=== PATIENT | male | born 1965 | race Caucasian/White ===

== ENCOUNTER 2022-12-29 09:11 | Inpatient (IN) | payer BC ==
[~2022-12-29] VITALS: Ht 165.1 cm; Wt 97.4 kg
[2022-12-29 10:25] LABS: BASOPHILS # (AUTO) 0.1 X10'3 (0-0.2); BASOPHILS % (AUTO) 0.6 % (0-1); EOSINOPHILS # (AUTO) 0.1 X10'3 (0-0.9); EOSINOPHILS % (AUTO) 0.7 % (0-6); HEMATOCRIT 39.3 % (42.0-52.0); HEMOGLOBIN 13.1 g/dl (14.0-17.9); LYMPHOCYTES % (AUTO) 22.9 % (21-51); MEAN CORPUSCULAR HEMOGLOBIN 27.3 PG (27.0-31.0); MEAN CORPUSCULAR HGB CONC 33.3 g/dL (33.0-36.5); MEAN PLATELET VOLUME 6.8 FL (7.4-10.4); MONOCYTES # (AUTO) 0.8 X10'3 (0-0.9); MONOCYTES % (AUTO) 9.6 % (2-12); NEUTROPHILS # (AUTO) 5.7 X10'3 (1.8-7.7); NEUTROPHILS % (AUTO) 66.2 % (42-75); PLATELET COUNT 343 X10'3 (140-440); RED BLOOD COUNT 4.79 X10'6 (4.70-6.10); RED CELL DISTRIBUTION WIDTH 14.5 % (11.5-14.5); WHITE BLOOD COUNT 8.6 X10'3 (4.5-11.0)
[2022-12-29 10:40] LABS: ALANINE AMINOTRANSFERASE 35 U/L (12-78); ALBUMIN 2.7 G/DL (3.4-5.0); ALBUMIN/GLOBULIN RATIO 0.5 (1.1-1.5); ALKALINE PHOSPHATASE 537 IU/L (46-116); ANION GAP 8 (8-16); ASPARTATE AMINO TRANSFERASE 23 U/L (10-37); BILIRUBIN,TOTAL 0.5 MG/DL (0.1-1.0); BLOOD UREA NITROGEN 13 MG/DL (7-18); BUN/CREATININE RATIO 14.1 (10.0-20.0); CALCIUM 9.3 MG/DL (8.5-10.1); CHLORIDE 96 MMOL/L (99-107); CREATININE 0.92 MG/DL (0.60-1.10); GLUCOSE 315 MG/DL (70-104); SODIUM 132 MMOL/L (135-145); TOTAL CARBON DIOXIDE 28.4 MMOL/L (24-32); TOTAL PROTEIN 7.9 G/DL (6.4-8.2); eGFR 85 ML/MIN
[2022-12-29 10:53] LABS: CLARITY,URINE CLEAR (Clear); COLOR,URINE YELLOW (Yellow); GLUCOSE, URINE 100 mg/dl (Neg); KETONES,URINE 15 mg/dl (Neg); LEUKOCYTE ESTERASE ,URINE NEGATIVE (Neg); NITRITES, URINE NEGATIVE (Neg); OCCULT BLOOD,URINE SMALL (Neg); PROTEIN,URINE 100 mg/dl (Neg); UROBILINOGEN,URINE 0.2 E.U/dL (0.2-1.0)
[2022-12-29 10:57] LABS: UA COLLECTION TYPE VOIDED
[2022-12-29 10:59] LABS: BACTERIA,URINE FEW /HPF (Neg); MUCUS STRANDS MODERATE /LPF (Neg); RBC,URINE 0-2 /HPF (0-2); SQUAMOUS EPITHELIAL CELL,UR FEW /LPF (FEW); WBC,URINE 0-4 /HPF (0-4)
[2022-12-29 11:00] LABS: FINE GRANULAR CAST 0-3 /LPF (NEGATIVE)
[2022-12-29] MEDS ORDERED: HYDROcodone/acetaminophen 10/325mg tab PO STA (11:52)
[2022-12-29] MEDS ORDERED: GADOTERATE MEGLUMINE 7.5 MMOL/15 ML VIAL IV ONE (16:47)
[2022-12-29] MEDS ORDERED: ondansetron/PF 4mg/2ml inj IV PRN (19:45)
[2022-12-29] MEDS ORDERED: magnesium hydroxide 30ml (MOM) UD suspension PO PRN (19:45)
[2022-12-29] MEDS ORDERED: magnesium 4gm in 100ml NS 100 ML IV PRN (19:45)
[2022-12-29] MEDS ORDERED: potassium Cl 40MEQ/1/2NS 520ml 520 ML IV PRN (19:45)
[2022-12-29] MEDS ORDERED: HYDROmorphone inj. 0.5 MG/0.5 ML DISP.SYRIN IV PRN (19:45)
[2022-12-29] MEDS ORDERED: potassium Cl 20 mEq SR tablet PO PRN ×2 (19:45)
[2022-12-29] MEDS ORDERED: HYDROmorphone/PF 0.2 MG/ML SYRINGE IV PRN (19:45)
[2022-12-29] MEDS ORDERED: mag hydrox/Alum hydrox/simeth 30ml oral suspension PO PRN (19:45)
[2022-12-29] MEDS ORDERED: acetaminophen 325mg tablet PO PRN (19:45)
[2022-12-29] MEDS ORDERED: ondansetron/PF 4mg/2ml inj IV ONE (19:50)
[2022-12-29] MEDS ORDERED: morphine 4 MG/ML inj SYRINge IV ONE (19:50)
[2022-12-29] MEDS: docusate sod 100mg capsule PO SCH (20:00)
[2022-12-29] MEDS ORDERED: enoxaparin 40mg/0.4ml syringe SQ SCH (20:00)
[2022-12-29] MEDS: K and/or MAG REPLACEMENT MC SCH (21:00)
--- NOTE | 2022-12-29 21:15 | NUR ---
IV STARTED IN L BRACHIAL @2100 20G, NO S/S OF INFILTRATION. FLUSHING W/O COMPLICATIONS. DRESSING CDI.
[2022-12-30 03:30] VITALS: BP 146/83
[2022-12-30 06:00] VITALS: BP 129/76
[2022-12-30 06:22] LABS: BASOPHILS # (AUTO) 0.1 X10'3 (0-0.2); BASOPHILS % (AUTO) 0.9 % (0-1); EOSINOPHILS # (AUTO) 0.1 X10'3 (0-0.9); EOSINOPHILS % (AUTO) 0.9 % (0-6); HEMOGLOBIN 12.1 g/dl (14.0-17.9); LYMPHOCYTES # (AUTO) 2.4 X10'3 (1.1-4.8); LYMPHOCYTES % (AUTO) 33.1 % (21-51); MEAN CORPUSCULAR HEMOGLOBIN 27.8 PG (27.0-31.0); MEAN CORPUSCULAR HGB CONC 33.7 g/dL (33.0-36.5); MEAN CORPUSCULAR VOLUME 82.6 FL (78-98); MONOCYTES % (AUTO) 14.3 % (2-12); NEUTROPHILS # (AUTO) 3.7 X10'3 (1.8-7.7); NEUTROPHILS % (AUTO) 50.8 % (42-75); PLATELET COUNT 345 X10'3 (140-440); RED BLOOD COUNT 4.36 X10'6 (4.70-6.10); RED CELL DISTRIBUTION WIDTH 14.4 % (11.5-14.5); WHITE BLOOD COUNT 7.2 X10'3 (4.5-11.0)
[2022-12-30 06:35] LABS: ALANINE AMINOTRANSFERASE 48 U/L (12-78); ALBUMIN 2.4 G/DL (3.4-5.0); ALBUMIN/GLOBULIN RATIO 0.5 (1.1-1.5); ALKALINE PHOSPHATASE 437 IU/L (46-116); ANION GAP 8 (8-16); ASPARTATE AMINO TRANSFERASE 28 U/L (10-37); BILIRUBIN,TOTAL 0.3 MG/DL (0.1-1.0); BLOOD UREA NITROGEN 14 MG/DL (7-18); BUN/CREATININE RATIO 17.5 (10.0-20.0); CALCIUM 8.8 MG/DL (8.5-10.1); CHLORIDE 97 MMOL/L (99-107); GLUCOSE 196 MG/DL (70-104); MAGNESIUM 1.9 MG/DL (1.5-2.4); POTASSIUM 3.8 MMOL/L (3.5-5.1); SODIUM 132 MMOL/L (135-145); TOTAL CARBON DIOXIDE 27.2 MMOL/L (24-32); TOTAL PROTEIN 7.2 G/DL (6.4-8.2); eGFR > 90 ML/MIN
--- NOTE | 2022-12-30 06:53 | NUR ---
Report to Becky FUNK.
[2022-12-30] MEDS: K and/or MAG REPLACEMENT MC SCH (07:17)
[2022-12-30] MEDS: docusate sod 100mg capsule PO SCH (08:17)
--- NOTE | 2022-12-30 09:53 | NUR ---
PAGER ID: [phone] MESSAGE: [phone] Mode Ku Do you want a Chest Xray for the patient? Some coworkers have been diagnosed with Squamous Cell Carcinoma. Becky [id number]
[2022-12-30 10:00] VITALS: BP 146/76
[2022-12-30] MEDS ORDERED: iohexol 300mg/ml 100ml inj. ONE (10:41)
[2022-12-30] MEDS ORDERED: BICA50TA48 PO (12:48)
[2022-12-30] MEDS ORDERED: ACET-1008 PO (12:51)
[2022-12-30] MEDS ORDERED: IBUP-1985 PO (12:51)
[2022-12-30] MEDS ORDERED: OMEP20CA15 PO (12:51)
[2022-12-30] MEDS ORDERED: METF-1203 PO (13:31)
== END 2022-12-30 14:05 | disposition home or self-care (01) | DRG 723 ==
LOC: ER 09:11 → ED HOLD 19:51 → ORTHO 4S 12-30 03:15
PROVIDERS: ADMIT Family Medicine; ATTEND Internal Medicine
PROC: BW251ZZ Computerized Tomography (CT Scan) of Chest, Abdomen and Pelvis using Low Osmolar Contrast (ICD-10-PCS; principal; 2022-12-30)
DX: C61 Malignant neoplasm of prostate (principal); C79.51 Secondary malignant neoplasm of bone; E87.1 Hypo-osmolality and hyponatremia; R74.8 Abnormal levels of other serum enzymes; E11.65 Type 2 diabetes mellitus with hyperglycemia; M54.9 Dorsalgia, unspecified; F17.220 Nicotine dependence, chewing tobacco, uncomplicated; Z79.84 Long term (current) use of oral hypoglycemic drugs; Z80.42 Family history of malignant neoplasm of prostate; Z83.3 Family history of diabetes mellitus; Z79.899 Other long term (current) drug therapy
CPT/HCPCS: 36415; 71045; 71260; 72141; 72146; 72158; 72197; 74177; 76857; 80053; 81001; 82948; 83735; 84153; 84154; 85025; 87081; 97161; 97530; A9575; G0378; J1170; J1650; J2270; J2405; J3490; Q9967

== ENCOUNTER 2024-01-06 10:59 | Inpatient (IN) | payer BC ==
[~2024-01-06] VITALS: Ht 165.1 cm; Wt 90.0 kg
[~2024-01-06 10:59] MED LIST: ACET-1008 PO; ASCO500C17 PO; BICA50TA48 PO; CHOL200074 PO; FERR325T28 PO; IBUP-1985 PO; METF-900 PO
[2024-01-06 12:06] LABS: BASOPHILS % (AUTO) 0.2 % (0-1); EOSINOPHILS % (AUTO) 1.1 % (0-6); HEMATOCRIT 32.1 % (42.0-52.0); HEMOGLOBIN 10.6 g/dl (14.0-17.9); LYMPHOCYTES # (AUTO) 0.1 X10'3 (1.1-4.8); LYMPHOCYTES % (AUTO) 4.2 % (21-51); MEAN CORPUSCULAR HEMOGLOBIN 27.1 PG (27.0-31.0); MEAN PLATELET VOLUME 6.2 FL (7.4-10.4); MONOCYTES % (AUTO) 1.6 % (2-12); NEUTROPHILS # (AUTO) 2.1 X10'3 (1.8-7.7); NEUTROPHILS % (AUTO) 92.9 % (42-75); PLATELET COUNT 125 X10'3 (140-440); RED BLOOD COUNT 3.91 X10'6 (4.70-6.10); WHITE BLOOD COUNT 2.2 X10'3 (4.5-11.0)
[2024-01-06 12:25] LABS: ANISOCYTOSIS 1+; PLATELET ESTIMATE DECREASED; TOTAL CELLS COUNTED 100
[2024-01-06 14:02] LABS: ALBUMIN 2.3 G/DL (3.4-5.0); ANION GAP 7 (8-16); BLOOD UREA NITROGEN 18 MG/DL (7-18); BUN/CREATININE RATIO 28.6 (10.0-20.0); CHLORIDE 102 MMOL/L (99-107); CREATININE 0.63 MG/DL (0.60-1.10); GLUCOSE 205 MG/DL (70-104); MAGNESIUM 2.1 MG/DL (1.5-2.4); POTASSIUM 3.9 MMOL/L (3.5-5.1); SODIUM 134 MMOL/L (135-145); TOTAL CARBON DIOXIDE 25.3 MMOL/L (24-32); eCRCL 114 ML/MIN; eGFR > 90 ML/MIN
[2024-01-06] MEDS ORDERED: iohexol 300mg/ml 100ml inj. ONE (14:13)
[2024-01-06] MEDS: piperacillin/tazo 3.375gm/50ml 50 ML IV ONE (14:48)
[2024-01-06] MEDS: normal saline 1000ML IV soln IVB ONE (14:48)
[2024-01-06] MEDS: HYDROcodone/acetaminophen 10/325mg tab PO ONE (14:49)
[2024-01-06] MEDS: vancomycin/NS 1 GM ADD-VANTAGE 250 ML IV ONE (14:59)
[2024-01-06] MEDS ORDERED: piperacillin/tazo 4.5gm/100ml 100 ML IV SCH (20:00)
[2024-01-06] MEDS ORDERED: ondansetron 4mg rapidly disintigrating tab PO PRN (20:05)
[2024-01-06] MEDS ORDERED: HYDROmorphone/PF 0.2 MG/ML SYRINGE IV PRN (20:05)
[2024-01-06] MEDS ORDERED: magnesium Cl slow-release 64mg tablet PO PRN (20:05)
[2024-01-06] MEDS ORDERED: acetaminophen 325mg tablet PO PRN (20:05)
[2024-01-06] MEDS ORDERED: magnesium 2GM in 50ml NS 50 ML IV PRN (20:05)
[2024-01-06] MEDS ORDERED: magnesium hydroxide 30ml (MOM) UD suspension PO PRN (20:05)
[2024-01-06] MEDS ORDERED: potassium Cl 20 mEq SR tablet PO PRN ×2 (20:05)
[2024-01-06] MEDS ORDERED: HYDROcodone/acetaminophen 10/325mg tab PO PRN (20:05)
[2024-01-06] MEDS ORDERED: ondansetron/PF 4mg/2ml inj IV PRN ×2 (20:05→23:00)
[2024-01-06] MEDS ORDERED: magnesium 4gm in 100ml NS 100 ML IV PRN (20:05)
[2024-01-06] MEDS ORDERED: HYDROcodone/acetaminophen 5mg/325mg tablet PO PRN (20:05)
[2024-01-06] MEDS ORDERED: mag hydrox/Alum hydrox/simeth 30ml oral suspension PO PRN (20:05)
[2024-01-06] MEDS ORDERED: potassium Cl 40MEQ/1/2NS 520ml 520 ML IV PRN (20:05)
[2024-01-06] MEDS: normal saline 1000ml 1,000 ML IV SCH (21:21)
[2024-01-06] MEDS: HYDROmorphone inj. 0.5 MG/0.5 ML DISP.SYRIN IV PRN (21:22)
[2024-01-06 22:25] LABS: APTT 32 SECONDS (22-32); INR 1.1 INR; PROTHROMBIN TIME 11.3 SECONDS (9.0-12.0)
[2024-01-06] MEDS ORDERED: dextrose 50%-water 50ml dispensing syringe IV PRN ×2 (22:35)
[2024-01-06] MEDS ORDERED: glucagon, human recombinant 1mg kit SUBCUT PRN (22:35)
[2024-01-06] MEDS ORDERED: DEXTROSE 15 GM of carb/4 tabs (each vial/BOTTLE has 4 tablets) PO PRN ×2 (22:35)
[2024-01-06] MEDS ORDERED: meperidine/PF 25mg/ml syringe IV PRN ×3 (23:00)
[2024-01-06] MEDS ORDERED: hydrALAZINE 20mg/ml inj. IV PRN (23:00)
[2024-01-06] MEDS ORDERED: proCHLORperazine 10 MG/2 ml inj IV PRN (23:00)
[2024-01-06] MEDS ORDERED: morphine 4 MG/ML inj SYRINge IV PRN (23:00)
[2024-01-06] MEDS ORDERED: morphine 2 MG/ML inj. syringe IV PRN (23:00)
[2024-01-06] MEDS ORDERED: ringers solution, lacted 1,000 ML IV SCH (23:00)
[2024-01-06] MEDS ORDERED: sevoflurane 250ml liquid IH ONE (23:00)
[2024-01-06] MEDS ORDERED: labetalol 20mg/4ml (5mg/ml) syringe IV PRN (23:00)
[2024-01-06] MEDS ORDERED: midazolam 1 mg/ML 2ml injection ONE (23:05)
[2024-01-06] MEDS ORDERED: fentaNYL /PF 50mcg/ml 5ml ampule ONE (23:05)
[2024-01-06] MEDS ORDERED: vancomycin 1,000mg inj ONE (23:17)
[2024-01-06] MEDS ORDERED: propofol inj 20 ML IV ONE (23:26)
[2024-01-06] MEDS ORDERED: LIDOcaine 2% (20mg/ml) 5ml vial ONE (23:26)
[2024-01-06] MEDS ORDERED: 0.9 % SODIUM CHLORIDE 10 ML VIAL ONE (23:26)
[2024-01-06] MEDS ORDERED: ondansetron/PF 4mg/2ml inj ONE (23:26)
[2024-01-06] MEDS ORDERED: dexamethasone sod phosphate 4mg/ml inj. ONE (23:26)
[2024-01-06] MEDS ORDERED: naloxone 0.4 mg/ml inj IV PRN (23:40)
[2024-01-06 23:50] VITALS: BP 113/64; PULSE 98; RESP 16; O2SAT 98
[2024-01-07] VITALS (20 sets, daily range): BP systolic 99–121; BP diastolic 57–70; PULSE 79–96; RESP 15–17; TEMP 97–98.6; O2SAT 90–97
[2024-01-07] MEDS: vancomycin/NS 1 GM ADD-VANTAGE 250 ML IV SCH (00:01)
[2024-01-07] MEDS: piperacillin/tazo 4.5gm/100ml 100 ML IV SCH (00:03)
[2024-01-07] MEDS: acetaminophen 1,000mg/100ml IV 100 ML IV ONE (00:10)
[2024-01-07] MEDS ORDERED: DARO300T PO (01:28)
[2024-01-07 07:24] LABS: BASOPHILS % (AUTO) 0.2 % (0-1); EOSINOPHILS % (AUTO) 0.2 % (0-6); HEMATOCRIT 27.6 % (42.0-52.0); HEMOGLOBIN 9.2 g/dl (14.0-17.9); LYMPHOCYTES # (AUTO) 0.1 X10'3 (1.1-4.8); LYMPHOCYTES % (AUTO) 4.1 % (21-51); MEAN CORPUSCULAR HEMOGLOBIN 26.8 PG (27.0-31.0); MEAN CORPUSCULAR HGB CONC 33.3 g/dL (33.0-36.5); MEAN CORPUSCULAR VOLUME 80.6 FL (78-98); MEAN PLATELET VOLUME 6.2 FL (7.4-10.4); MONOCYTES % (AUTO) 2.4 % (2-12); NEUTROPHILS # (AUTO) 1.6 X10'3 (1.8-7.7); NEUTROPHILS % (AUTO) 93.1 % (42-75); PLATELET COUNT 99 X10'3 (140-440); RED BLOOD COUNT 3.42 X10'6 (4.70-6.10); RED CELL DISTRIBUTION WIDTH 17.4 % (11.5-14.5); WHITE BLOOD COUNT 1.7 X10'3 (4.5-11.0)
[2024-01-07 07:45] LABS: ALANINE AMINOTRANSFERASE 145 U/L (12-78); ALBUMIN 2.1 G/DL (3.4-5.0); ALBUMIN/GLOBULIN RATIO 0.6 (1.1-1.5); ALKALINE PHOSPHATASE 174 IU/L (46-116); ANION GAP 8 (8-16); ASPARTATE AMINO TRANSFERASE 136 U/L (10-37); BILIRUBIN,TOTAL 0.5 MG/DL (0.1-1.0); BLOOD UREA NITROGEN 11 MG/DL (7-18); BUN/CREATININE RATIO 21.2 (10.0-20.0); CALCIUM 7.1 MG/DL (8.5-10.1); CHLORIDE 106 MMOL/L (99-107); CREATININE 0.52 MG/DL (0.60-1.10); GLUCOSE 267 MG/DL (70-104); SODIUM 136 MMOL/L (135-145); TOTAL CARBON DIOXIDE 22.4 MMOL/L (24-32); TOTAL PROTEIN 5.6 G/DL (6.4-8.2); eCRCL 138 ML/MIN; eGFR > 90 ML/MIN
[2024-01-07 07:50] LABS: ANISOCYTOSIS 1+; MICROCYTOSIS 1+; PLATELET ESTIMATE DECREASED; TOTAL CELLS COUNTED 100
[2024-01-07] MEDS: docusate sod 100mg capsule PO SCH (09:28)
[2024-01-07] MEDS: INSULIN LISPRO 100 UNIT/ML INSULN.PEN MULTI-DOSE SQ SCH ×2 (09:32)
[2024-01-07] MEDS: K and/or MAG REPLACEMENT MC SCH (09:40)
[2024-01-07] MEDS ORDERED: MESSAGE TO NURSING IV SCH (14:20)
[2024-01-07] MEDS: JUVEN Shake w/Arg/Glut/Ca2+Bmb (Juven 19.3gm) pkt 240ml PO SCH (18:00)
[2024-01-07] MEDS: insulin glargine (Lantus) pen - multi-dose SQ SCH (21:38)
[2024-01-08 06:00] VITALS: BP 114/73; PULSE 87; RESP 16; TEMP 98.2; O2SAT 96
[2024-01-08] MEDS: ferrous sulfate 325mg tablet PO SCH (06:56)
[2024-01-08] MEDS: ascorbic acid 500mg tablet PO SCH (06:56)
[2024-01-08] MEDS: psyllium seed 5.8 gm packet (sugar-free) PO SCH (06:57)
[2024-01-08] MEDS: VANCOMYCIN LEVEL IV ONE (07:07)
[2024-01-08 07:30] LABS: BASOPHILS % (AUTO) 0.1 % (0-1); EOSINOPHILS % (AUTO) 1.9 % (0-6); HEMOGLOBIN 8.6 g/dl (14.0-17.9); LYMPHOCYTES # (AUTO) 0.1 X10'3 (1.1-4.8); LYMPHOCYTES % (AUTO) 12.3 % (21-51); MEAN CORPUSCULAR HEMOGLOBIN 26.7 PG (27.0-31.0); MEAN CORPUSCULAR HGB CONC 32.9 g/dL (33.0-36.5); MEAN PLATELET VOLUME 6.1 FL (7.4-10.4); MONOCYTES % (AUTO) 1.5 % (2-12); NEUTROPHILS # (AUTO) 0.7 X10'3 (1.8-7.7); NEUTROPHILS % (AUTO) 84.2 % (42-75); PLATELET COUNT 86 X10'3 (140-440); RED BLOOD COUNT 3.21 X10'6 (4.70-6.10); RED CELL DISTRIBUTION WIDTH 17.7 % (11.5-14.5)
[2024-01-08 07:39] LABS: WHITE BLOOD COUNT 0.8 X10'3 (4.5-11.0)
[2024-01-08 07:44] LABS: ALANINE AMINOTRANSFERASE 111 U/L (12-78); ALBUMIN 1.9 G/DL (3.4-5.0); ALBUMIN/GLOBULIN RATIO 0.5 (1.1-1.5); ALKALINE PHOSPHATASE 159 IU/L (46-116); ANION GAP 6 (8-16); ASPARTATE AMINO TRANSFERASE 96 U/L (10-37); BILIRUBIN,TOTAL 0.4 MG/DL (0.1-1.0); BLOOD UREA NITROGEN 12 MG/DL (7-18); BUN/CREATININE RATIO 20.3 (10.0-20.0); CHLORIDE 107 MMOL/L (99-107); CREATININE 0.59 MG/DL (0.60-1.10); GLUCOSE 172 MG/DL (70-104); POTASSIUM 3.9 MMOL/L (3.5-5.1); SODIUM 137 MMOL/L (135-145); TOTAL CARBON DIOXIDE 23.6 MMOL/L (24-32); TOTAL PROTEIN 5.4 G/DL (6.4-8.2); eCRCL 122 ML/MIN; eGFR > 90 ML/MIN
[2024-01-08 07:51] LABS: VANCOMYCIN,TROUGH 13.2 ug/mL (10.0-20.0)
[2024-01-08 08:00] VITALS: RESP 16; O2SAT 96
[2024-01-08 10:00] VITALS: BP 113/68; PULSE 85; RESP 16; TEMP 97.7; O2SAT 97
[2024-01-08] MEDS: HYDROcodone/acetaminophen 10/325mg tab PO PRN (10:28)
[2024-01-08] MEDS: VANCOmycin 1250MG/NS 250ml Bag 250 ML IV SCH (17:09)
[2024-01-08 18:00] VITALS: BP 108/72; PULSE 81; RESP 18; TEMP 98.7; O2SAT 99
[2024-01-08 20:00] VITALS: RESP 18; O2SAT 99
[2024-01-08 22:00] VITALS: BP 104/68; PULSE 85; RESP 18; TEMP 98.5; O2SAT 91
[2024-01-09] MEDS: Melatonin 3mg tablet PO PRN (00:03)
[2024-01-09 06:00] VITALS: BP_SYST 104; BP_SYST 107; BP_DIAS 67; BP_DIAS 68; PULSE 83; PULSE 85; RESP 17; RESP 18; TEMP 98.1; TEMP 98.5; O2SAT 91; O2SAT 95
[2024-01-09 06:57] LABS: ALANINE AMINOTRANSFERASE 92 U/L (12-78); ALBUMIN/GLOBULIN RATIO 0.6 (1.1-1.5); ALKALINE PHOSPHATASE 160 IU/L (46-116); ANION GAP 10 (8-16); ASPARTATE AMINO TRANSFERASE 78 U/L (10-37); BILIRUBIN,TOTAL 0.6 MG/DL (0.1-1.0); BLOOD UREA NITROGEN 12 MG/DL (7-18); BUN/CREATININE RATIO 20.7 (10.0-20.0); CALCIUM 7.2 MG/DL (8.5-10.1); CHLORIDE 100 MMOL/L (99-107); CREATININE 0.58 MG/DL (0.60-1.10); GLUCOSE 151 MG/DL (70-104); POTASSIUM 3.9 MMOL/L (3.5-5.1); SODIUM 131 MMOL/L (135-145); TOTAL CARBON DIOXIDE 21.2 MMOL/L (24-32); TOTAL PROTEIN 5.5 G/DL (6.4-8.2); eCRCL 124 ML/MIN; eGFR > 90 ML/MIN
[2024-01-09 07:06] LABS: MEAN CORPUSCULAR HEMOGLOBIN 26.9 PG (27.0-31.0); MEAN PLATELET VOLUME 6.3 FL (7.4-10.4)
[2024-01-09 07:08] LABS: HEMATOCRIT 26.8 % (42.0-52.0); MEAN CORPUSCULAR HGB CONC 33.5 g/dL (33.0-36.5); MEAN CORPUSCULAR VOLUME 80.4 FL (78-98); PLATELET COUNT 71 X10'3 (140-440); RED BLOOD COUNT 3.33 X10'6 (4.70-6.10); RED CELL DISTRIBUTION WIDTH 17.9 % (11.5-14.5)
[2024-01-09 07:21] LABS: WHITE BLOOD COUNT 0.2 X10'3 (4.5-11.0)
[2024-01-09 08:34] LABS: TOTAL CELLS COUNTED 100
[2024-01-09 08:35] LABS: ANISOCYTOSIS 1+; ELLIPTOCYTES FEW; PLATELET ESTIMATE DECREASED; TEAR DROP CELLS FEW
[2024-01-09 08:37] LABS: ROULEAUX 1+
[2024-01-09 10:00] VITALS: BP 123/80; PULSE 80; RESP 16; TEMP 98.1; O2SAT 95
[2024-01-09] MEDS: TBO-filgrastim 300 MCG/0.5 ML inj. SQ ONE (13:56)
[2024-01-09] MEDS: VANCOMYCIN LEVEL IV ONE (15:55)
[2024-01-09] MEDS: HYDROmorphone inj. 0.5 MG/0.5 ML DISP.SYRIN IV PRN (15:58)
[2024-01-09] MEDS: vancomycin/NS 1 GM ADD-VANTAGE 250 ML IV SCH (16:30)
[2024-01-09 18:00] VITALS: BP 103/56; PULSE 86; RESP 15; TEMP 100.2; O2SAT 96
[2024-01-09] MEDS: HYDROmorphone/PF 0.2 MG/ML SYRINGE IV PRN (19:40)
[2024-01-09] MEDS: CefTRIAXone 2gm/D5W 50ml BAG 50 ML IV SCH (20:06)
[2024-01-09 22:00] VITALS: BP 101/54; PULSE 88; RESP 16; TEMP 99.1; O2SAT 94
[2024-01-10 05:00] VITALS: BP 108/67; PULSE 83; RESP 16; TEMP 99.5; O2SAT 96
[2024-01-10 06:56] LABS: MEAN CORPUSCULAR HEMOGLOBIN 26.8 PG (27.0-31.0); RED BLOOD COUNT 3.23 X10'6 (4.70-6.10)
[2024-01-10 06:58] LABS: HEMATOCRIT 25.9 % (42.0-52.0); HEMOGLOBIN 8.6 g/dl (14.0-17.9); MEAN CORPUSCULAR HGB CONC 33.4 g/dL (33.0-36.5); MEAN CORPUSCULAR VOLUME 80.1 FL (78-98); RED CELL DISTRIBUTION WIDTH 17.5 % (11.5-14.5)
[2024-01-10 07:11] LABS: ALANINE AMINOTRANSFERASE 74 U/L (12-78); ALBUMIN 1.9 G/DL (3.4-5.0); ALBUMIN/GLOBULIN RATIO 0.5 (1.1-1.5); ALKALINE PHOSPHATASE 154 IU/L (46-116); ANION GAP 6 (8-16); ASPARTATE AMINO TRANSFERASE 49 U/L (10-37); BILIRUBIN,TOTAL 0.4 MG/DL (0.1-1.0); BLOOD UREA NITROGEN 15 MG/DL (7-18); BUN/CREATININE RATIO 13.8 (10.0-20.0); CALCIUM 7.2 MG/DL (8.5-10.1); CHLORIDE 107 MMOL/L (99-107); CREATININE 1.09 MG/DL (0.60-1.10); GLUCOSE 150 MG/DL (70-104); POTASSIUM 3.8 MMOL/L (3.5-5.1); SODIUM 139 MMOL/L (135-145); TOTAL CARBON DIOXIDE 25.9 MMOL/L (24-32); TOTAL PROTEIN 5.5 G/DL (6.4-8.2); eCRCL 66 ML/MIN; eGFR 70 ML/MIN
[2024-01-10 07:30] VITALS: RESP 17; O2SAT 97
[2024-01-10 08:26] LABS: WHITE BLOOD COUNT 0.2 X10'3 (4.5-11.0)
[2024-01-10 08:27] LABS: PLATELET COUNT 44 X10'3 (140-440)
[2024-01-10 09:41] LABS: TOTAL CELLS COUNTED 10
[2024-01-10 09:42] LABS: PLATELET ESTIMATE DECREASED
[2024-01-10 09:43] LABS: POIKILOCYTOSIS 2+
[2024-01-10 09:44] LABS: ANISOCYTOSIS 1+
[2024-01-10 10:00] VITALS: BP 113/69; PULSE 84; RESP 16; TEMP 98.1; O2SAT 94
[2024-01-10] MEDS: TBO-filgrastim 300 MCG/0.5 ML inj. SQ SCH (10:54)
[2024-01-10] MEDS ORDERED: VANCOMYCIN LEVEL IV ONE (15:30)
[2024-01-10] MEDS: lactose-reduced food (Ensure High Protein) 237ml bottle PO SCH (17:30)
[2024-01-10 18:00] VITALS: BP 117/73; PULSE 82; RESP 16; TEMP 99; O2SAT 96
[2024-01-10 20:00] VITALS: RESP 16; O2SAT 96
[2024-01-10 22:00] VITALS: BP 141/80; PULSE 82; RESP 18; TEMP 98; O2SAT 96
[2024-01-11] VITALS (9 sets, daily range): BP systolic 114–135; BP diastolic 67–80; PULSE 77–100; RESP 14–19; TEMP 97.6–98.3; O2SAT 96–97
[2024-01-11 08:09] LABS: HEMOGLOBIN 8.7 g/dl (14.0-17.9); MEAN CORPUSCULAR HGB CONC 33.6 g/dL (33.0-36.5)
[2024-01-11 08:11] LABS: HEMATOCRIT 25.8 % (42.0-52.0); MEAN CORPUSCULAR HEMOGLOBIN 27.1 PG (27.0-31.0); MEAN CORPUSCULAR VOLUME 80.6 FL (78-98); RED CELL DISTRIBUTION WIDTH 17.5 % (11.5-14.5)
[2024-01-11 08:21] LABS: WHITE BLOOD COUNT < 0.2 X10'3 (4.5-11.0)
[2024-01-11 08:23] LABS: PLATELET COUNT 26 X10'3 (140-440)
[2024-01-11 08:31] LABS: ALANINE AMINOTRANSFERASE 65 U/L (12-78); ALBUMIN 1.9 G/DL (3.4-5.0); ALBUMIN/GLOBULIN RATIO 0.5 (1.1-1.5); ALKALINE PHOSPHATASE 161 IU/L (46-116); ANION GAP 9 (8-16); ASPARTATE AMINO TRANSFERASE 32 U/L (10-37); BILIRUBIN,TOTAL 0.4 MG/DL (0.1-1.0); BLOOD UREA NITROGEN 16 MG/DL (7-18); BUN/CREATININE RATIO 13.9 (10.0-20.0); CALCIUM 7.7 MG/DL (8.5-10.1); CHLORIDE 105 MMOL/L (99-107); CREATININE 1.15 MG/DL (0.60-1.10); GLUCOSE 145 MG/DL (70-104); POTASSIUM 3.7 MMOL/L (3.5-5.1); SODIUM 139 MMOL/L (135-145); TOTAL CARBON DIOXIDE 25.4 MMOL/L (24-32); TOTAL PROTEIN 5.7 G/DL (6.4-8.2); eCRCL 62 ML/MIN; eGFR 66 ML/MIN
[2024-01-11 09:03] LABS: ANISOCYTOSIS 1+; PLATELET ESTIMATE DECREASED; TOTAL CELLS COUNTED 50
[2024-01-11 09:07] LABS: ELLIPTOCYTES FEW; POIKILOCYTOSIS FEW
[2024-01-11] MEDS: nystatin 500,000 unit/5ML UD oral suspension PO SCH (21:44)
[2024-01-12 06:00] VITALS: BP 113/69; PULSE 83; RESP 16; TEMP 98.2; O2SAT 95
[2024-01-12 08:00] VITALS: RESP 16; O2SAT 95
[2024-01-12] MEDS: amox tr/potassium clavulanate 875/125mg TAB PO SCH (09:14)
[2024-01-12] MEDS: fluconazole 100mg tablet PO SCH (09:15)
[2024-01-12 10:05] LABS: HEMATOCRIT 25.4 % (42.0-52.0); HEMOGLOBIN 8.4 g/dl (14.0-17.9); MEAN CORPUSCULAR HEMOGLOBIN 26.8 PG (27.0-31.0); MEAN CORPUSCULAR HGB CONC 33.1 g/dL (33.0-36.5); MEAN CORPUSCULAR VOLUME 80.8 FL (78-98); MEAN PLATELET VOLUME 7.4 FL (7.4-10.4); RED BLOOD COUNT 3.15 X10'6 (4.70-6.10); RED CELL DISTRIBUTION WIDTH 17.7 % (11.5-14.5)
[2024-01-12 10:09] LABS: WHITE BLOOD COUNT 0.2 X10'3 (4.5-11.0)
[2024-01-12 10:10] LABS: PLATELET COUNT 44 X10'3 (140-440)
[2024-01-12 10:18] LABS: ALANINE AMINOTRANSFERASE 55 U/L (12-78); ALBUMIN 2.1 G/DL (3.4-5.0); ALBUMIN/GLOBULIN RATIO 0.5 (1.1-1.5); ALKALINE PHOSPHATASE 158 IU/L (46-116); ANION GAP 4 (8-16); ASPARTATE AMINO TRANSFERASE 21 U/L (10-37); BILIRUBIN,TOTAL 0.3 MG/DL (0.1-1.0); BLOOD UREA NITROGEN 18 MG/DL (7-18); BUN/CREATININE RATIO 15.9 (10.0-20.0); CHLORIDE 103 MMOL/L (99-107); CREATININE 1.13 MG/DL (0.60-1.10); GLUCOSE 247 MG/DL (70-104); POTASSIUM 4.1 MMOL/L (3.5-5.1); SODIUM 135 MMOL/L (135-145); TOTAL CARBON DIOXIDE 27.6 MMOL/L (24-32); eCRCL 64 ML/MIN; eGFR 67 ML/MIN
[2024-01-12 10:33] LABS: NUCLEATED RED BLOOD CELLS 1 /100WBC (0-0); TOTAL CELLS COUNTED 25
[2024-01-12 10:34] LABS: ANISOCYTOSIS 1+; PLATELET ESTIMATE DECREASED; POIKILOCYTOSIS FEW; TEAR DROP CELLS FEW
[2024-01-12 11:00] VITALS: BP 125/75; PULSE 80; RESP 15; TEMP 98.2; O2SAT 97
[2024-01-12] MEDS: levoFLOXACIN 500mg tablet PO SCH (11:56)
[2024-01-12 18:00] VITALS: BP 115/71; PULSE 79; RESP 14; TEMP 98.1; O2SAT 98
[2024-01-12 22:00] VITALS: BP 122/78; PULSE 85; RESP 14; TEMP 98.1; O2SAT 96
[2024-01-13 08:00] VITALS: RESP 18; O2SAT 96
[2024-01-13 09:44] LABS: LYMPHOCYTES # (AUTO) 0.1 X10'3 (1.1-4.8); MEAN CORPUSCULAR VOLUME 80.8 FL (78-98); MEAN PLATELET VOLUME 7.2 FL (7.4-10.4); MONOCYTES # (AUTO) 0.1 X10'3 (0-0.9); NEUTROPHILS # (AUTO) 0.4 X10'3 (1.8-7.7)
[2024-01-13 09:45] LABS: BASOPHILS % (AUTO) 1.1 % (0-1); EOSINOPHILS % (AUTO) 0.6 % (0-6); HEMATOCRIT 25.3 % (42.0-52.0); HEMOGLOBIN 8.4 g/dl (14.0-17.9); LYMPHOCYTES % (AUTO) 10.6 % (21-51); MEAN CORPUSCULAR HEMOGLOBIN 26.9 PG (27.0-31.0); MEAN CORPUSCULAR HGB CONC 33.3 g/dL (33.0-36.5); MONOCYTES % (AUTO) 20.5 % (2-12); NEUTROPHILS % (AUTO) 67.2 % (42-75); RED BLOOD COUNT 3.13 X10'6 (4.70-6.10); RED CELL DISTRIBUTION WIDTH 17.5 % (11.5-14.5)
[2024-01-13 10:05] LABS: ALANINE AMINOTRANSFERASE 49 U/L (12-78); ALBUMIN 2.2 G/DL (3.4-5.0); ALBUMIN/GLOBULIN RATIO 0.5 (1.1-1.5); ALKALINE PHOSPHATASE 159 IU/L (46-116); ANION GAP 9 (8-16); ASPARTATE AMINO TRANSFERASE 18 U/L (10-37); BILIRUBIN,TOTAL 0.3 MG/DL (0.1-1.0); BLOOD UREA NITROGEN 20 MG/DL (7-18); BUN/CREATININE RATIO 15.4 (10.0-20.0); CALCIUM 7.8 MG/DL (8.5-10.1); CHLORIDE 101 MMOL/L (99-107); GLUCOSE 217 MG/DL (70-104); SODIUM 135 MMOL/L (135-145); TOTAL CARBON DIOXIDE 25.2 MMOL/L (24-32); TOTAL PROTEIN 6.3 G/DL (6.4-8.2); eCRCL 55 ML/MIN; eGFR 57 ML/MIN
[2024-01-13 10:18] LABS: PLATELET COUNT 33 X10'3 (140-440); WHITE BLOOD COUNT 0.6 X10'3 (4.5-11.0)
[2024-01-13 10:46] LABS: BANDS% (MANUAL) 6.7 % (0-10); METAMYLEOCYTES% (MANUAL) 1.7 % (0-0); MONOCYTES % (MANUAL) 26.7 % (2-12); PLATELET ESTIMATE DECREASED; TOTAL CELLS COUNTED 60
[2024-01-13 10:53] LABS: ANISOCYTOSIS 1+; ELLIPTOCYTES FEW; POLYCHROMASIA FEW
[2024-01-13 12:02] VITALS: BP 119/74; PULSE 83; RESP 15; TEMP 98.8; O2SAT 96
[2024-01-13 18:00] VITALS: BP 111/72; PULSE 86; RESP 18; TEMP 99; O2SAT 97
[2024-01-13 22:00] VITALS: BP 113/74; PULSE 83; RESP 17; TEMP 98.1; O2SAT 97
[2024-01-14 06:00] VITALS: BP 107/55; PULSE 84; RESP 18; TEMP 97.8; O2SAT 94
[2024-01-14 08:10] LABS: BASOPHILS % (AUTO) 0.2 % (0-1); EOSINOPHILS % (AUTO) 0.4 % (0-6); HEMATOCRIT 26.2 % (42.0-52.0); HEMOGLOBIN 8.7 g/dl (14.0-17.9); LYMPHOCYTES # (AUTO) 0.1 X10'3 (1.1-4.8); LYMPHOCYTES % (AUTO) 7.3 % (21-51); MEAN CORPUSCULAR HGB CONC 33.4 g/dL (33.0-36.5); MEAN CORPUSCULAR VOLUME 80.8 FL (78-98); MEAN PLATELET VOLUME 7.8 FL (7.4-10.4); MONOCYTES # (AUTO) 0.3 X10'3 (0-0.9); MONOCYTES % (AUTO) 16.6 % (2-12); NEUTROPHILS # (AUTO) 1.3 X10'3 (1.8-7.7); NEUTROPHILS % (AUTO) 75.5 % (42-75); RED BLOOD COUNT 3.24 X10'6 (4.70-6.10); RED CELL DISTRIBUTION WIDTH 17.9 % (11.5-14.5); WHITE BLOOD COUNT 1.8 X10'3 (4.5-11.0)
[2024-01-14 08:19] LABS: PLATELET COUNT 35 X10'3 (140-440)
[2024-01-14 10:00] VITALS: BP 113/63; PULSE 95; RESP 18; TEMP 98.8; O2SAT 95
[2024-01-14 18:00] VITALS: BP 117/76; PULSE 85; RESP 20; TEMP 98.3; O2SAT 96
[2024-01-14 20:00] VITALS: RESP 20; O2SAT 96
[2024-01-14 22:00] VITALS: BP 107/61; PULSE 81; RESP 16; TEMP 98.3; O2SAT 95
[2024-01-15 06:00] VITALS: BP 100/62; PULSE 83; RESP 18; TEMP 98.1; O2SAT 97
[2024-01-15 06:58] LABS: EOSINOPHILS % (AUTO) 0.3 % (0-6); LYMPHOCYTES # (AUTO) 0.2 X10'3 (1.1-4.8); MONOCYTES # (AUTO) 0.4 X10'3 (0-0.9); RED CELL DISTRIBUTION WIDTH 18.4 % (11.5-14.5); WHITE BLOOD COUNT 3.6 X10'3 (4.5-11.0)
[2024-01-15 07:01] LABS: BASOPHILS % (AUTO) 0.2 % (0-1); HEMATOCRIT 27.2 % (42.0-52.0); LYMPHOCYTES % (AUTO) 5.1 % (21-51); MEAN CORPUSCULAR HEMOGLOBIN 26.6 PG (27.0-31.0); MEAN CORPUSCULAR VOLUME 80.5 FL (78-98); MEAN PLATELET VOLUME 7.3 FL (7.4-10.4); MONOCYTES % (AUTO) 12.2 % (2-12); NEUTROPHILS % (AUTO) 82.2 % (42-75); RED BLOOD COUNT 3.38 X10'6 (4.70-6.10)
[2024-01-15 07:14] LABS: ALANINE AMINOTRANSFERASE 67 U/L (12-78); ALBUMIN 2.5 G/DL (3.4-5.0); ALBUMIN/GLOBULIN RATIO 0.6 (1.1-1.5); ALKALINE PHOSPHATASE 191 IU/L (46-116); ANION GAP 11 (8-16); ASPARTATE AMINO TRANSFERASE 27 U/L (10-37); BILIRUBIN,TOTAL 0.3 MG/DL (0.1-1.0); BLOOD UREA NITROGEN 18 MG/DL (7-18); BUN/CREATININE RATIO 15.5 (10.0-20.0); CALCIUM 7.8 MG/DL (8.5-10.1); CHLORIDE 101 MMOL/L (99-107); CREATININE 1.16 MG/DL (0.60-1.10); GLUCOSE 149 MG/DL (70-104); POTASSIUM 3.8 MMOL/L (3.5-5.1); SODIUM 134 MMOL/L (135-145); TOTAL CARBON DIOXIDE 22.4 MMOL/L (24-32); TOTAL PROTEIN 6.8 G/DL (6.4-8.2); eCRCL 62 ML/MIN; eGFR 65 ML/MIN
[2024-01-15 08:16] LABS: PLATELET COUNT 43 X10'3 (140-440)
[2024-01-15 08:38] LABS: ANISOCYTOSIS 2+; PLATELET ESTIMATE DECREASED; TOTAL CELLS COUNTED 100
[2024-01-15 08:40] LABS: ELLIPTOCYTES FEW; NUCLEATED RED BLOOD CELLS 2 /100WBC (0-0); SCHISTOCYTES FEW
[2024-01-15 11:04] VITALS: BP 113/72; PULSE 84; RESP 18; TEMP 98.2; O2SAT 95
[2024-01-15] MEDS ORDERED: AMOX-580 PO (11:28)
[2024-01-15] MEDS ORDERED: IBUP-1985 PO (11:28)
[2024-01-15] MEDS ORDERED: FLUC100T64 PO (11:28)
[2024-01-15] MEDS ORDERED: LEVO-65 PO (11:28)
== END 2024-01-15 12:18 | disposition home or self-care (01) | DRG 344 ==
LOC: ER 11:00 → ED HOLD 20:10 → ORTHO 4S 01-07 00:48
PROVIDERS: ADMIT Surgery; ATTEND Internal Medicine
PROC: 0D9P0ZZ Drainage of Rectum, Open Approach (ICD-10-PCS; principal; 2024-01-06 23:00)
PROC: 30233R1 Transfusion of Nonautologous Platelets into Peripheral Vein, Percutaneous Approach (ICD-10-PCS; 2024-01-11)
DX: K61.1 Rectal abscess (principal); D61.810 Antineoplastic chemotherapy induced pancytopenia; C78.7 Secondary malignant neoplasm of liver and intrahepatic bile duct; C79.51 Secondary malignant neoplasm of bone; E44.0 Moderate protein-calorie malnutrition; E87.1 Hypo-osmolality and hyponatremia; C79.31 Secondary malignant neoplasm of brain; C34.90 Malignant neoplasm of unspecified part of unspecified bronchus or lung; T45.1X5A Adverse effect of antineoplastic and immunosuppressive drugs, initial encounter; T50.995A Adverse effect of other drugs, medicaments and biological substances, initial encounter; C61 Malignant neoplasm of prostate; E11.9 Type 2 diabetes mellitus without complications; Z79.84 Long term (current) use of oral hypoglycemic drugs; Z79.899 Other long term (current) drug therapy; Z83.3 Family history of diabetes mellitus; Y92.89 Other specified places as the place of occurrence of the external cause; Z68.33 Body mass index [BMI] 33.0-33.9, adult
CPT/HCPCS: 99285; Z7506; 36415; 36430; 71045; 74177; 80048; 80053; 80202; 82948; 83036; 83605; 83735; 84100; 84145; 85007; 85025; 85610; 85730; 86885; 86900; 86901; 87040; 87070; 87075; 87076; 87077; 87081; 87185; 87186; 93005; A4615; A4618; A6253; A6266; A6407; A6449; A7000; G0378; J0131; J0696; J1100; J1170; J1442; J1815; J2250; J2405; J2543; J2704; J3010; J3370; J3490; J7030; J7040; J7120; P9035; Q9967